=== PATIENT | female | born 1960 | race Caucasian/White ===

== ENCOUNTER 2017-11-23 08:49 | Day surgery (SDC) | payer BC ==
--- OUTSIDE RECORDS SUMMARY | 2017-11-23 08:52 | XMS REPORT ---
:1960 [facility] Address [address] [place] [address] Dr. Mack [address] [place] [id number] Care Team Providers Name Role Phone UNKNOWN, REFFERING Primary Care Provider Unavailable ROBSON GARCIA M.D. Unavailable Unavailable Problems This patient has no known problems. Allergies, Adverse Reactions, Alerts This patient has no known allergies or adverse reactions. Medications This patient has no known medications. Encounters Start End Encounter Admission Attending Care Care Encounter Date/Time Date/Time Type Type Clinicians Facility Department ID 2017-03-26 2017-03-26 [facility] [id number] 10:32:00 10:32:00 ROBSON Cruz M.D. Results Test Description Test Time Test Comments Text Results Atomic Results Result Comments POC Glucose, Blood 2017-03-26 13:20:00 Test Item Value Reference Range Comments POC Glucose (test code=POCGLUC) 102 mg/dL 70-115 If you consider your patient critically ill, the Ciara Accu-Chek InformII metershould not be used for Glucose determinations.Draw a venous Glucose and send to the Main Lab for Analysis. POC Glucose, [id number] 11:19:00 Test Item Value Reference Range Comments POC Glucose (test 85 mg/dL 70-115 If you consider your patient code=POCGLUC) critically ill, the Ciara Accu-Chek InformII metershould not be used for Glucose determinations.Draw a venous Glucose and send to the Main Lab for Analysis.
[2017-11-23] MEDS ORDERED: NS 0.9% VIAL 10 ML ONE (09:50)
[2017-11-23] MEDS ORDERED: BALANCED SALT IRRIG PLAIN 500 ML BTL IRR ONE (09:50)
[2017-11-23] MEDS ORDERED: EPINEPHRINE/PF 1 MG/ML AMP ONE (09:50)
[2017-11-23] MEDS ORDERED: DUOVISC 1 KIT OPTH ONE (09:51)
[2017-11-23] MEDS ORDERED: MOXIFLOXACIN HCL 10 DROPS/ML **OR USE OPTH ONE (09:51)
[2017-11-23] MEDS ORDERED: NA CHLORIDE 0.9% 500 ML ONE (10:16)
[2017-11-23] MEDS ORDERED: LIDOCAINE 2% INJ, MPF 2 ML 2 ML ONE (10:16)
[2017-11-23] MEDS ORDERED: CYCLOPENTOLATE 1% OPTH 2 ML ONE (10:16)
[2017-11-23] MEDS ORDERED: PHENYLEPHRINE 10% OPTH 5ML ONE (10:17)
[2017-11-23] MEDS ORDERED: PHENYLEPHRINE 10% OPTH 5ML OPTH ONE ×2 (10:29→10:34)
[2017-11-23] MEDS ORDERED: CYCLOPENTOLATE 1% OPTH 2 ML OPTH ONE ×2 (10:29→10:34)
[2017-11-23] MEDS: TETRACAINE HCL 0.5% 2ML OPTH ONE ×2 (11:02→11:14)
[2017-11-23] MEDS: BUPIVACAINE 0.25% PF 10 ML VIAL ONE ×2 (11:03→11:15)
[2017-11-23] MEDS ORDERED: PROPOFOL 200 MG/20 ML VIAL IV ONE (11:10)
[2017-11-23] MEDS ORDERED: LIDOCAINE 1% MPF 2 ML AMPULE ONE (11:41)
--- NOTE | 2017-11-23 11:58 | P.BOP ---
Preoperative diagnosis: Nuclear sclerotic cataract and regular astigmatism OS Postoperative diagnosis: Same Primary procedure: Phacoemulsification with Toric IOL OS Estimated blood loss: None Anesthesia: Local (Subtenon's infusion with anesthesia for cataract surgery) Complications: None Implants: [id number] +20.5 @ 18 degrees Transferred to: Other (Day surgery) Condition: Good
--- NOTE | 2017-11-23 23:15 | OP ---
Date of Procedure: 11/23/2017 Surgeon: Kathie Montague MD Anesthesiologist: 1. Jarred King C.R.N.A. 2. Stephanie Thayer C.R.N.A. 3. Caden Antoine M.D. Preoperative Diagnosis: Nuclear sclerotic cataract and regular astigmatism, OS (left eye). Operation Performed: Phacoemulsification with Toric intraocular lens implant, left eye. Anesthesia: Per cataract surgery. Complications: None. Description Of Procedure: In day surgery, the patient was prepped with Betadine and draped. A conjunctival incision was made in the inferior nasal quadrant with Nancy scissors. A sub-Tenon block consisting of a 1:1 mixture of 2% Xylocaine and 0.25% bupivacaine was placed through the conjunctival incision with a blunt cannula. A Honan balloon was placed over the eye and the patient was transferred to the operating room. In the operating room the patient was prepped and draped in the usual sterile fashion for ophthalmic surgery. A lid speculum was placed in the left eye. Two paracentesis sites were made superiorly and inferiorly in the limbal cornea. Viscoat was placed in the anterior chamber and a crescent blade was used to make a corneal groove and tunnel, and a keratome was used to enter the anterior chamber. Provisc was placed in the anterior chamber and a 360-degree capsulotomy was performed with a cystitome. The lens was hydrodissected with BSS and rotated freely. The lens was removed with a stop and chop technique. A 10.38 phaco CDE was used to remove the lens. Residual cortex was removed with the irrigation and aspiration. Provisc was placed in the capsular bag. A [id number] +20.5 at 18 degrees lens was placed in the capsular bag without complications. Irrigation and aspiration were used to remove residual viscoelastic. The paracentesis sites were hydrated with BSS. The wound and paracentesis sites were inspected and found to be watertight. Vigamox 0.07 cc was placed intracamerally at the end of the procedure. The eye was irrigated with balanced salt solution. The eye was patched with a soft cotton patch and Collins metal shield. The patient was returned to day surgery in good condition. Discharge Instructions: Ms. Pérez is discharged to home in good condition and is to follow up with Dr. Leidlein in the morning. AMAN/CLAUDIA Voice ID: [id number] Report ID: [id number] REBEKA
== END 2017-11-23 12:21 | disposition home or self-care (01) ==
LOC: OR 08:49
PROVIDERS: ATTEND Ophthalmology Retina Specialist
PROC: 08RK3JZ Replacement of Left Lens with Synthetic Substitute, Percutaneous Approach (ICD-10-PCS; principal; 2017-11-23 10:30)
DX: H25.12 Age-related nuclear cataract, left eye (principal); H52.222 Regular astigmatism, left eye; E11.9 Type 2 diabetes mellitus without complications; I10 Essential (primary) hypertension; E03.9 Hypothyroidism, unspecified; E78.00 Pure hypercholesterolemia, unspecified; G47.33 Obstructive sleep apnea (adult) (pediatric); K21.9 Gastro-esophageal reflux disease without esophagitis; Z88.2 Allergy status to sulfonamides; Z88.8 Allergy status to other drugs, medicaments and biological substances; Z83.3 Family history of diabetes mellitus; Z82.49 Family history of ischemic heart disease and other diseases of the circulatory system
CPT/HCPCS: 36415; 82962; 84132; J0171; J2001; J3490; V2787

== ENCOUNTER 2023-03-13 09:54 | Day surgery (SDC) | payer BC ==
[2023-03-13] MEDS ORDERED: NA CHLORIDE 0.9% 1,000 ML ONE (10:19)
[2023-03-13] MEDS ORDERED: CEFAZOLIN SODIUM 2 GM/VIAL ONE (10:52)
[2023-03-13] MEDS ORDERED: CEFOXITIN SODIUM 2 GM/VIAL ONE (10:57)
[2023-03-13] MEDS ORDERED: BUPIVACAINE 0.25% PF 30 ML VIAL ONE (13:01)
[2023-03-13] MEDS ORDERED: ONDANSETRON 4 MG/2 ML VIAL ONE ×2 (13:43→15:33)
[2023-03-13] MEDS ORDERED: LIDOCAINE 2% MPF 5 ML VIAL ONE (13:43)
[2023-03-13] MEDS ORDERED: ROCURONIUM 50 MG/5 ML VIAL IV ONE (13:43)
[2023-03-13] MEDS ORDERED: FENTANYL CITR 100 MCG/2 ML ONE ×2 (13:43→14:39)
[2023-03-13] MEDS ORDERED: KETOROLAC 30 MG/ML INJ ONE (13:43)
[2023-03-13] MEDS ORDERED: MIDAZOLAM HCL 2 MG/2 ML INJ ONE (13:43)
[2023-03-13] MEDS ORDERED: propofoL 200 MG/20 ML VIAL IV ONE (13:43)
[2023-03-13] MEDS ORDERED: GLYCOPYRROLATE 0.2 MG/ML SYR ONE (15:00)
[2023-03-13] MEDS ORDERED: NEOSTIGMINE 1 MG/ML -10 ML VIAL ONE (15:00)
--- NOTE | 2023-03-13 15:07 | P.OP ---
Preoperative diagnosis: Chronic Cholecystitis Postoperative diagnosis: Chronic Cholecystitis Primary procedure: Laparoscopic Cholecystectomy with ICG Cholangiography Anesthesia: GETA + Local Estimated blood loss: <5cc Specimen: Gallbladder Findings: Chronic Cholecystitis Complications: None Transferred to: Recovery Room Condition: Good
--- NOTE | 2023-03-13 15:27 | EKG ---
Test Date: 2023-03-13 Test Time: 10:47:28 Herd Tester: FLY MEASUREMENT RESULTS: Intervals: Rate: 77 [place]: 158 QRSD: 76 QT: 366 QTc: 414 [place]: P: 71 [place]: 158 QRS: -7 T: 73 INTERPRETIVE STATEMENTS: Normal sinus rhythm Normal ECG Compared to ECG 12/07/2016 06:35:23 No significant changes Electronically Signed On 03-13-23 15:26:19 MANAGER INVENTORY by Rafa oYusif
[2023-03-13] MEDS ORDERED: Ringers Lactate 1,000 ML IV ONE (15:30)
[2023-03-13] MEDS ORDERED: PROMETHAZINE INJ 25 MG/ML AMP ONE (15:38)
--- NOTE | 2023-03-13 15:59 | OP ---
Date of Procedure: 03/13/2023 Surgeon: Konrad Au MD, Preoperative Diagnosis: Chronic cholecystitis. Postoperative Diagnosis: Chronic cholecystitis. Procedure Performed: Laparoscopic cholecystectomy with indocyanine green cholangiography. Anesthesia: General endotracheal plus local with 0.25% Marcaine. Estimated Blood Loss: Less than 5 cc. Specimen: Gallbladder. Findings: Consistent with chronic cholecystitis. Complications: None. Disposition: Patient transferred to recovery room in good condition. Procedure In Detail: After informed consent was obtained, patient was brought to the operating room, prepped and draped in the usual sterile fashion after adequate anesthesia was achieved. I anestheti zed an area of the supraumbilical position down to subcutaneous tissues. A 5 mm 0-degree optical tro car was introduced in the abdomen without incident or complication. Insufflation was obtained to 15 mmHg at this time. There was no injury to vital structures upon entry into the abdomen. Two additio nal trocars were placed, one in the epigastric, one in the right upper quadrant. Both of these were similarly anesthetized and sharply incised. A 5 mm trocar was placed under direct visualization with out incident or complication. The umbilical trocar was then upsized to a 12 mm under direct visualiz ation without incident or complication. Additionally, some additional scar tissue was noted from the omentum to the anterior abdominal wall in the periumbilical position extending down to the pelvis, b ut this was not in the surgical field and as such it was not addressed at this time. In addition, th e liver had a somewhat steatotic appearance to it. I grasped the gallbladder, placed it toward the p atient's right shoulder, began dissecting down to the Ori's pouch of the gallbladder, dissected out 2 structures identified as both the cystic duct and cystic artery, identifying the critical view of safety. At this point, I verified the anatomy. At this point, indocyanine green cholangiography confirmed the anatomy as described above. Two structures were noted entering the gallbladder. These were identified as both cystic duct and cystic artery. Double titanium clips were placed, doubly on the proximal side and singly on the distal side of both the cystic duct and cystic artery. These st ructures were then ligated using Endo Valeria without incident or complication. The gallbladder was r emoved from the hepatic fossa, placed in EndoCatch bag, removed through the umbilical trocar site, se nt off for pathologic examination. The abdomen was re-insufflated at this point. Irrigation was per formed at this point. Minimal hemostatic measures were required on the lateral distal aspect of the gallbladder bed. This remained clean and dry at the end of the procedure. I irrigated the area once again. I checked under decreased pneumoperitoneum. ICG cholangiography confirmed no leakage of ramiro e, at this point. The remaining effluent was suctioned out. At this point, clips remained in good p osition. Patient was positioned back in neutral position. The remaining effluent was suctioned out. The umbilical trocar site was then closed using a Ravi-Dakota suture passer with 0 Vicryl tract in an interrupted fashion with good approximation of tissues. The remaining trocars were removed af ter decompressing the abdomen under direct visualization without incident or complication. The remai nico trocars were removed. All skin incisions were then copiously irrigated and closed with a 4-0 Mo nocryl in a running fashion. Dermabond was placed over top. The patient tolerated the procedure wel l without incident or complication, transferred to PACU in good condition. All counts were correct a t the end of the case. TK/MODL Voice ID: [id number] Report ID: [id number]
[2023-03-13] MEDS ORDERED: HYDROCODONE/APAP 7.5/325 MG TAB ONE (16:10)
[2023-03-13 16:18] VITALS: BP 143/62; TEMP 97.8; O2SAT 96
== END 2023-03-13 16:36 | disposition home or self-care (01) ==
LOC: OR 09:54
PROVIDERS: ATTEND Surgery
PROC: BF50200 Other Imaging of Bile Ducts using Fluorescing Agent, Indocyanine Green Dye, Intraoperative (ICD-10-PCS; 2023-03-13)
PROC: 0FT44ZZ Resection of Gallbladder, Percutaneous Endoscopic Approach (ICD-10-PCS; principal; 2023-03-13 13:30)
DX: K80.10 Calculus of gallbladder with chronic cholecystitis without obstruction (principal); I10 Essential (primary) hypertension; E11.9 Type 2 diabetes mellitus without complications; K21.9 Gastro-esophageal reflux disease without esophagitis
CPT/HCPCS: 93005; 80048; 36415; 82947 ×3; 88304; 47563; J2550; J2704; J2710; J2001; J2250; J3010 ×2; J0694; J2405 ×2; J7120; J7030

== ENCOUNTER → 2023-03-18 | Emergency (ER) | payer BC ==
[~2023-03-18] MED LIST: NA CHLORIDE 0.9% 1,000 ML ONE; NA CHLORIDE 0.9% 100 ML ONE; ONDANSETRON 4 MG/2 ML VIAL ONE; PIPERACIL/TAZO 3.375 GM VIAL IV ONE
[2023-03-18 20:40] LABS: Absolute Lymphocytes (CBC) 0.5 K/uL (0.7-4.9); Hematocrit 36.1 % (36.0-45.0); Lymphocytes % 3.9 % (15.3-44.8); MCV 86.5 fL (80-100); MPV 6.9 fL (7.6-11.3); Platelets 273 thou/uL (152-406); RBC Red Blood Cell Count 4.17 M/uL (3.86-4.86)
[2023-03-18 21:02] LABS: Protime INR 1.24
[2023-03-18 21:22] LABS: Albumin 3.4 g/dL (3.4-5.0); Bilirubin Total 2.3 mg/dL (0.2-1.0); Potassium 3.7 mEq/L (3.5-5.1); Protein, Total 7.6 g/dL (6.4-8.2)
--- NOTE | 2023-03-18 22:18 | RAD REPORT ---
EXAM DESCRIPTION: CTAbdomen Pelvis W Contrast - 03/18/2023 10:07 pm CLINICAL HISTORY: Abdominal pain. ABD PAIN COMPARISON: No comparisons TECHNIQUE: Biphasic CT imaging of the abdomen and pelvis was performed with 100 ml non-ionic IV cont rast. All CT scans are performed using dose optimization technique as appropriate and may include automated exposure control or mA/KV adjustment according to patient size. FINDINGS: The lung bases are clear. The liver, spleen, pancreas, adrenal glands and kidneys are within normal limits. Cholecystectomy. 10 mm soft tissue density structure in the distal common duct. No bowel obstruction, free air, free fluid or abscess. Mild sigmoid diverticulosis coli without diver ticulitis. Small fat containing umbilical hernia. The appendix is not identified as a discrete struct ure, however, no secondary findings of appendicitis are identified. No evidence of significant lymp hadenopathy. Mild to moderate lumbar degenerative changes. IMPRESSION: Cholecystectomy with 10 mm soft tissue density structure in the distal common bile duct. This is suspicious for a common bile duct stone. MRCP may be useful for further evaluation.
--- NOTE | 2023-03-18 22:36 | ER ---
Nurse's Notes [facility] Name: Jami Pérez Age: 62 yrs Sex: Female : 1960 Arrival Date: 03/18/2023 Time: 18:18 Bed 8 Private MD: Sujit Duran Diagnosis: CBD calculus with obstruction - 10mm / biliary obstruction;Cholangitis Presentation: 03/18 18:45 Chief complaint: Patient states: Had gallbladder removed Thursday here. Today started ll1 having fever 100.8 and abdominal/back pain. Coronavirus screen: Vaccine status: Patient reports receiving the 2nd dose of the covid vaccine. Client denies travel out of the [place] in the last 14 days. cough unrelated to allergies, fatigue, fever, Client presents with at least one sign or symptom that may indicate coronavirus-19. Standard/surgical mask placed on the client. Ebola Screen: Patient denies travel to an Ebola-affected area in the 21 days before illness onset. Initial Sepsis Screen: Does the patient meet any 2 criteria? No. Patient's initial sepsis screen is negative. Does the patient have a suspected source of infection? Yes: Acute abdominal pain. Risk Assessment: Do you want to hurt yourself or someone else? Patient reports no desire to harm self or others. Onset of symptoms was March 18, 2023. 18:45 Method Of Arrival: Wheelchair ll1 18:45 Acuity: LONA 2 ll1 Historical: - Allergies: 18:44 Sulfa (Sulfonamide Antibiotics); ll1 18:44 TETRACYCLINES; ll1 - PMHx: 18:44 Diabetes - IDDM; High Cholesterol; Fibromyalgia; GERD; Hypertension; Chronic pain; ll1 Hypothyroidism; - PSHx: 18:44 Cholecystectomy; ll1 - Immunization history:: Adult Immunizations up to date. - Social history:: Smoking status: Patient denies any tobacco usage or history of. Screenin/04 01:06 [facility] ED Fall Risk Assessment (Adult) History of falling in the last 3 months, jb4 including since admission No falls in past 3 months (0 pts) Confusion or Disorientation No (0 pts) Score/Fall Risk Level 0 - 2 = Low Risk Oriented to surroundings. Abuse screen: Denies threats or abuse. Nutritional screening: No deficits noted. Tuberculosis screening: No symptoms or risk factors identified. Assessment: 03/18 20:00 General: Appears in no apparent distress. comfortable, Behavior is calm, cooperative, jb4 appropriate for age. Pain: Complains of pain in abdomen Pain does not radiate. Pain currently is 2 out of 10 on a pain scale. Quality of pain is described as aching. Neuro: Level of Consciousness is awake, alert, obeys commands, Oriented to person, place, time, situation. Cardiovascular: Patient's skin is warm and dry. Respiratory: Airway is patent Respiratory effort is even, unlabored, Respiratory pattern is regular, symmetrical. GI: No signs and/or symptoms were reported involving the gastrointestinal system. : No signs and/or symptoms were reported regarding the genitourinary system. EENT: No signs and/or symptoms were reported regarding the EENT system. Derm: Skin is intact, Skin is pink, warm \T\ dry. Musculoskeletal: Circulation, motion, and sensation intact. Range of motion: intact in all extremities. 21:13 Reassessment: Patient appears in no apparent distress at this time. Patient and/or jb4 family updated on plan of care and expected duration. Pain level reassessed. Patient is alert, oriented x 3, equal unlabored respirations, skin warm/dry/pink. 22:00 Reassessment: Patient appears in no apparent distress at this time. Patient and/or jb4 family updated on plan of care and expected duration. Pain level reassessed. Patient is alert, oriented x 3, equal unlabored respirations, skin warm/dry/pink. 23:20 Reassessment: Patient appears in no apparent distress at this time. Patient and/or jb4 family updated on plan of care and expected duration. Pain level reassessed. Patient is alert, oriented x 3, equal unlabored respirations, skin warm/dry/pink. 03/19 00:34 Reassessment: Patient appears in no apparent distress at this time. Patient and/or jb4 family updated on plan of care and expected duration. Pain level reassessed. Patient is alert, oriented x 3, equal unlabored respirations, skin warm/dry/pink. Vital Signs: 03/18 18:45 BP 147 / 87; Pulse 111; Resp 17; Temp 98.6; Pulse Ox 96% ; Weight 83.46 kg; Height 5 ll1 ft. 2 in. ; Pain 3/10; 21:11 BP 139 / 78; Pulse 97; Resp 16; Pulse Ox 96% on R/A; jb4 23:14 BP 132 / 78; Pulse 99; Resp 16; Pulse Ox 99% on R/A; jb4 03/19 00:00 BP 135 / 79; Pulse 102; Resp 16; Temp 98.2(TE); Pulse Ox 97% on R/A; jb4 03/18 18:45 Body Mass Index 33.65 (83.46 kg, 157.48 cm) ll1 03/18 18:45 Pain Scale: Adult ll1 ED Course: 03/18 18:20 Patient arrived in ED. mr 18:20 Sujit Duran MD is Private Physician. mr 18:47 Triage completed. ll1 18:50 [facility]. sb4 18:50 Eitan Brown MD is Attending Physician. sb4 20:00 Kenneth Pulliam RN is Primary Nurse. rv 20:27 Radiology exam delayed due to IV insertion attempt and/or patient not having nj appropriate IV at this time. 20:27 Radiology exam delayed due to lab results not completed at this time. (BUN/Creatinine). nj 22:09 CT Abd/Pelvis - IV Contrast Only In Process Unspecified. EDMS 22:43 contacted [facility] for pt transfer, spoke with ekta, was told she will call back. \T\0006 kmf doc to doc was done. 03/19 00:23 Ekta Domingo RN [facility] called with approval \T\0023. emily Anaya md accepted pt \T\ km f 0014. Pt to go to [address] [place] [address] 2063. Nurse to nurse report [phone]. Faxed facesheet to [phone]. 01:06 Patient has correct armband on for positive identification. Bed in low position. Call jb4 light in reach. Side rails up X 1. Client placed on continuous cardiac and pulse oximetry monitoring. NIBP monitoring applied. 01:06 No provider procedures requiring assistance completed. Patient transferred, IV remains jb4 in place. Administered Medications: 03/18 20:40 Drug: Ondansetron IVP 4 mg IVP once; over 2 minutes Route: IVP; Site: right antecubital;jb4 20:41 Drug: NS 0.9% IV 1000 ml IV at 1 bolus Per protocol; 1000 mL bolus Route: IV; Rate: 1 jb4 bolus; Site: right antecubital; 23:20 Drug: Piperacillin-Tazobactam IVPB 3.375 grams IVPB once over 60 mins; (mix in NS 100 jb4 mL) Route: IVPB; Infused Over: 60 mins; Site: right antecubital; 03/19 01:05 Not Given (Patient Refused): morphineor iv 4 mg IVP once over 4 mins jb4 Outcome: 03/18 22:36 ER care complete, transfer ordered by MD. león 03/19 01:06 Transferred by ground EMS to [facility], [facility], jb4 Condition: stable Discharge instructions given to patient, Instructed on the need for transfer, Demonstrated understanding of instructions, 01:08 Patient left the ED. jb4 Signatures: Dispatcher [employer] EDMS Jami Corcoran, Reg Reg Jagdihs Cuevas RN RN jb4 Toribio Deng Ronaldo, RN RN rv Lewis, Lynsay, RN RN ll1 Dana Jenkins, PA-Iain PA-C nancy4 Laura Todd [facility] Corrections: (The following items were deleted from the chart) 03/18 21:13 21:11 BP 139 / 78; Pulse 78bpm; Resp 16bpm; Pulse Ox 99% RA; jb4 jb4
--- NOTE | 2023-03-18 22:36 | EDPHYS ---
Physician Documentation [facility] Name: Jami Pérez Age: 62 yrs Sex: Female : 1960 Arrival Date: 03/18/2023 Time: 18:18 Bed 8 Private MD: Sujit Duran ED Physician Eitan Brown HPI: 03/18 22:20 This 62 yrs old Female presents to ER via Wheelchair with complaints of Post Surgical sb4 Pain, Fever. 22:20 patient had laproscopic cholecystectomy done outpatient on Thursday by dr. redmond. sb4 states she has had no complications until today she says she started experiencing severe RUQ pain similar to her prior GB attacks and said that she had a fever of 100.8F. she states that the fever and the pain have improved since. endorses nausea but no vomiting or diarrhea. Historical: - Allergies: 18:44 Sulfa (Sulfonamide Antibiotics); ll1 18:44 TETRACYCLINES; ll1 - PMHx: 18:44 Diabetes - IDDM; High Cholesterol; Fibromyalgia; GERD; Hypertension; Chronic pain; ll1 Hypothyroidism; - PSHx: 18:44 Cholecystectomy; ll1 - Immunization history:: Adult Immunizations up to date. - Social history:: Smoking status: Patient denies any tobacco usage or history of. ROS: 22:20 Cardiovascular: Negative for chest pain, palpitations, and edema, sb4 22:20 Constitutional: Positive for fever, 22:20 Abdomen/GI: Positive for abdominal pain, nausea, 22:20 All other systems are negative, Exam: 22:20 Constitutional: This is a well developed, well nourished patient who is awake, alert, sb4 and in no acute distress. Head/Face: Normocephalic, atraumatic. Eyes: Extra-ocular motions intact. Periorbital areas with no swelling, redness, or edema. ENT: Mucous membranes moist. Cardiovascular: Regular rate and rhythm with a normal S1 and S2. Respiratory: Lungs have equal breath sounds bilaterally, clear to auscultation and percussion. No rales, rhonchi or wheezes noted. No increased work of breathing, no retractions or nasal flaring. Skin: Warm, dry with normal turgor. Normal color with no rashes, no lesions, and no evidence of cellulitis. MS/ Extremity: Pulses equal, no cyanosis. Neurovascular intact. Full, normal range of motion. Neuro: Awake and alert, GCS 15, oriented to person, place, time, and situation. Motor strength 5/5 in all extremities. Sensory grossly intact. 22:20 Abdomen/GI: Inspection: abdomen appears normal, bruising, right upper quadrant, distension, is not seen, scar(s), Bowel sounds: normal, Palpation: soft, nontender, 3 laparoscopic incision sites healing well, no purulence or erythema, 23:07 Skin: Appearance: Color: mildly jaundiced, sb4 Vital Signs: 18:45 BP 147 / 87; Pulse 111; Resp 17; Temp 98.6; Pulse Ox 96% ; Weight 83.46 kg; Height 5 ll1 ft. 2 in. ; Pain 3/10; 21:11 BP 139 / 78; Pulse 97; Resp 16; Pulse Ox 96% on R/A; jb4 23:14 BP 132 / 78; Pulse 99; Resp 16; Pulse Ox 99% on R/A; jb4 03/19 00:00 BP 135 / 79; Pulse 102; Resp 16; Temp 98.2(TE); Pulse Ox 97% on R/A; jb4 03/18 18:45 Body Mass Index 33.65 (83.46 kg, 157.48 cm) ll1 03/18 18:45 Pain Scale: Adult ll1 MDM: 03/18 18:50 Patient medically screened. sb4 22:20 Differential diagnosis: post operative seroma, bile leak, pancreatitis, post surgical sb4 pain. 22:33 Data reviewed: vital signs, nurses notes, lab test result(s), radiologic studies, I sb4 have discussed the patient's presentation/case with the attending Emergency Department Physician;. Management of patient was discussed with the following: Broom Worker: Dr. Redmond, requests transfer for ERCP. Care significantly affected by the following chronic conditions: Diabetes, Hypertension. Counseling: I had a detailed discussion with the patient and/or guardian regarding the historical points, exam findings, and any diagnostic results supporting the discharge/admit diagnosis, the presence of at least one elevated blood pressure reading (>120/80) during this emergency department visit, lab results, radiology results, the need to transfer to another facility, for higher level of care, [facility] does not immediately have the required specialist. 03/19 00:16 Management of patient was discussed with the following: Hospitalist: Dr. Aguilar sb4 hospitalist at [facility], accepts patient . 03/18 18:52 Order name: Blood Culture Adult (2) 4 03/18 18:52 Order name: CBC with Diff; Complete Time: 20:48 sb4 03/18 18:52 Order name: CMP; Complete Time: 21:22 sb4 03/18 18:52 Order name: Lactate w/ 2H reflex if indic.; Complete Time: 21:19 sb4 03/18 18:52 Order name: Protime (+inr); Complete Time: 21:04 sb4 03/18 18:52 Order name: Ptt, Activated; Complete Time: 21: sb4 03/18 18:52 Order name: Lipase; Complete Time: 21:22 sb4 03/18 18:52 Order name: CT Abd/Pelvis - IV Contrast Only; Complete Time: 22:23 sb4 03/18 18:52 Order name: Accucheck; Complete Time: 20:28 sb4 03/18 18:52 Order name: Cardiac monitoring; Complete Time: 20:28 sb4 03/18 18:52 Order name: IV Saline Lock - Large Bore; Complete Time: 20:28 sb4 03/18 18:52 Order name: Labs collected and sent; Complete Time: 20:28 4 03/18 18:52 Order name: O2 Per Protocol; Complete Time: 20:28 sb4 03/18 18:52 Order name: O2 Sat Monitoring; Complete Time: 20:28 sb4 03/18 18:52 Order name: Vital Signs; Complete Time: 20:28 sb4 Administered Medications: 03/18 20:40 Drug: Ondansetron IVP 4 mg IVP once; over 2 minutes Route: IVP; Site: right antecubital;jb4 20:41 Drug: NS 0.9% IV 1000 ml IV at 1 bolus Per protocol; 1000 mL bolus Route: IV; Rate: 1 jb4 bolus; Site: right antecubital; 23:20 Drug: Piperacillin-Tazobactam IVPB 3.375 grams IVPB once over 60 mins; (mix in NS 100 jb4 mL) Route: IVPB; Infused Over: 60 mins; Site: right antecubital; 03/19 01:05 Not Given (Patient Refused): morphineor iv 4 mg IVP once over 4 mins jb4 Disposition Summary: 03/18/23 22:36 Transfer Ordered Notes: Transfer Location: [facility] sb4 Reason: Higher level of care sb4 Condition: Fair sb4 Problem: new sb4 Symptoms: are unchanged sb4 Accepting Physician: Dr. Aguilar(03/19/23 01:08) jb4 Diagnosis - CBD calculus with obstruction - 10mm / biliary obstruction sb4 - Cholangitis sb4 Forms: - Medication Reconciliation Form sb4 - SBAR form sb4 Signatures: Dispatcher [employer] EDJagdish Germain RN RN jb4 Malik Calderón RN RN ll1 Dana Jenkins PA-C PADebbie sb4 Corrections: (The following items were deleted from the chart) 03/18 23:57 22:20 patient had laproscopic cholecystectomy done outpatient on Thursday by dr. redmond. sb4 states she has had no complications until today she says she started experiencing severe RUQ pain similar to her prior GB attacks and said that she had a high fever. she states that the fever and the pain have improved since. endorses nausea but no vomiting or diarrhea. sb4 03/19 00:15 03/18 22:36 gi sb4 sb4 03/19 00:15 00:15 Dr. Jeff cruz4 sb4 00:15 Dr. Jeff cruz4 jb4
[2023-03-19 03:41] VITALS: BP 135/79; TEMP 98.2; O2SAT 97
== END ==
LOC: ER 18:18
DX: K80.31 Calculus of bile duct with cholangitis, unspecified, with obstruction (principal); E11.9 Type 2 diabetes mellitus without complications; K21.9 Gastro-esophageal reflux disease without esophagitis; E03.9 Hypothyroidism, unspecified; E78.00 Pure hypercholesterolemia, unspecified; I10 Essential (primary) hypertension; M79.7 Fibromyalgia; G89.29 Other chronic pain; Z88.2 Allergy status to sulfonamides; Z88.8 Allergy status to other drugs, medicaments and biological substances
CPT/HCPCS: 87040 ×2; 85025; 36415; 85610; 83605; 85730; 83690; 80053; 74177; Q9967; J2543; J2405; J7030